=== PATIENT | female | born 1945 ===

== ENCOUNTER 2019-06-27 06:30 | Day surgery (SDC) | payer OTHER ==
[~2019-06-27 06:30] MED LIST: COZAAR50 MG PO; LIPITOR80 MG PO; MICROZIDE12.5 MG PO; NEURONTIN300 MG PO; NORVASC5 MG PO; SYNTHROID50 MCG PO
[2019-06-27] MEDS ORDERED: IBU600 MG PO (08:46)
== END 2019-06-27 14:20 | disposition home or self-care (01) ==
LOC: CIR.AMB 06:30 → ADM 07:45 → CIR.AMB 10:15
DX: R93.89 Abnormal findings on diagnostic imaging of other specified body structures (principal)